=== PATIENT | female | born 1995 | race Caucasian/White ===

== ENCOUNTER 2017-01-17 19:37 | Emergency (ER) | payer OTHER ==
[2017-01-17 19:41] VITALS: BP 94/82; PULSE 86; RESP 18; TEMP 98.2; O2SAT 97
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
== END 2017-01-17 20:15 | disposition home or self-care (01) ==
DX: S09.90XA Unspecified injury of head, initial encounter (principal); W22.8XXA Striking against or struck by other objects, initial encounter

== ENCOUNTER 2017-02-23 17:31 | Emergency (ER) | payer OTHER ==
[2017-02-23 17:35] VITALS: RESP 16; TEMP 97.7
[2017-02-23 17:47] VITALS: BP 109/64; PULSE 68; O2SAT 98
--- NOTE | 2017-02-23 17:52 | EDPHY ---
H & P Time Seen by Provider: 02/23/17 17:43 HPI/ROS: CHIEF COMPLAINT: Sore throat x5 days HISTORY OF PRESENT ILLNESS: 21-year-old female, immunocompetent, arrives via private vehicle complaining of 5 days of sore throat, congestion, myalgias. No cough. No fever or chills. No new rash. No abdominal pain. No back or flank pain. No left upper quadrant pain. No nuchal rigidity. No change in voice. PRIMARY CARE PROVIDER: Alessandra REVIEW OF SYSTEMS: A ten point review of systems was performed and is negative with the exception of the items mentioned in the HPI PAST MEDICAL & SURGICAL HISTORY: Depression. Polycystic ovarian. SOCIAL HISTORY: Student PHYSICAL EXAM (Prior to examination, patient consented to physical exam, hands were washed and my usual and customary physical exam procedures followed) 1) GENERAL: Well-developed, well-nourished, alert and oriented. Appearstoxic. 2) HEAD: Normocephalic, atraumatic 3) HEENT: Pupils equal, round, reactive to light bilaterally. Sclera anicteric. Oropharynx: No trismus no drooling. No hot potato voice. Bilateral tonsils enlarged, symmetrical, exudate . Floor of mouth soft with no evidence of Ludwigs Angina . Ears bilaterally with normal tympanic membranes. 4) NECK: Full range of motion, no meningeal signs. 5) LUNGS: Clear auscultation bilaterally, no wheezes, no rhonchi, no retractions. 6) HEART: Regular rate and rhythm, no murmur, no heave, no gallop. 7) ABDOMEN: No guarding, 8) MUSCULOSKELETAL: No peripheral edema or discoloration. 9) BACK: No CVA tenderness 10) SKIN: No rash, no petechiae. DIFFERENTIAL DIAGNOSIS: in no particular order including but not limited to strep pharyngitis, mononucleosis, viral pharyngitis, peritonsillar abscess, meningitis Smoking Status: Never smoked Constitutional: Initial Vital Signs Temperature (C) 36.5 C 02/23/17 17:33 Heart Rate 97 02/23/17 17:33 Respiratory Rate 16 02/23/17 17:33 Blood Pressure 103/80 02/23/17 17:33 O2 Sat (%) 94 02/23/17 17:33 O2 Delivery Mode Room Air Allergies/Adverse Reactions: No Known Allergies Allergy (Unverified 01/17/17 19:41) Home Medications: Medication Instructions Recorded Control Pill 02/21/16 Depression/Anxiety Pill 02/21/16 Omeprazole [Prilosec 20 mg] 20 mg PO DAILY 02/21/16 buPROPion [Wellbutrin 75mg (*)] 75 mg PO 01/17/17 traMADol [Ultram 50 mg (*)] 50 mg PO Q4 01/17/17 Ibuprofen [Motrin (*)] 800 mg PO Q6 #15 tab 02/23/17 Penicillin V Potassium [Pen Vk] 500 mg PO Q6 10 Days tab 02/23/17 MDM/Departure - [facility] ED Course/Re-evaluation: Patient appears well, no trismus no drooling. Doubt: Meningitis, peritonsillar abscess, retropharyngeal abscess or phlegmon, mononucleosis. High clinical suspicion for strep pharyngitis. Recommended empiric treatment with Pen-VK times 10 days. Will hold on steroid therapy given her history of depression anxiety. She feels comfortable being discharged. Usual and customary pharyngitis precautions instructions provided. - Depart Disposition: Home, Routine, Self-Care Clinical Impression: Acute streptococcal pharyngitis Condition: Good Instructions: Strep Throat (ED) Additional Instructions: Return to the ER immediately if you cannot swallow, have drooling, fevers, neck stiffness, cannot open your jaw, or any other symptoms that concern you. Stand Alone Forms: School Excuse Prescriptions: Ibuprofen [Motrin (*)] 800 mg PO Q6 #15 tab Penicillin V Potassium [Pen Vk] 500 mg PO Q6 10 Days tab Referrals: Hitesh Santos MD [Medical Doctor] - 5-7 days, call for appt.
[2017-02-23] MEDS ORDERED: PENICILLIN VK 250MG PREPACK#6 BTL TAKEHOME ONE (18:01)
== END 2017-02-23 18:00 | disposition home or self-care (01) ==
DX: J02.0 Streptococcal pharyngitis (principal)